=== PATIENT | female | born 1980 | race Caucasian/White ===

== ENCOUNTER 2018-03-23 20:27 | Emergency (ER) | payer OTHER ==
[~2018-03-23] VITALS: Ht 180.3 cm; Wt 61.2 kg
[2018-03-23 20:35] VITALS: BP 95/55
[2018-03-24] MEDS ORDERED: cefTRIAXone SOD 1,000 MG VL IM ONE (00:15)
[2018-03-24] MEDS: cefTRIAXone W LIDOCAINE 1 GM IM IM ONE ×2 (00:30→01:04)
[2018-03-24] MEDS ORDERED: TETANUS-DIPTH-ACEL PERTUSSIS 0.5ML SYRG IM ONE (00:30)
[2018-03-24] MEDS ORDERED: LIDOCAINE 2% (LOCAL ANESTH.) PF 5ml SDV ONE (00:32)
== END 2018-03-24 03:57 | disposition home or self-care (01) ==
LOC: ER 20:27
DX: S61.002A Unspecified open wound of left thumb without damage to nail, initial encounter (principal); W27.3XXA Contact with needle (sewing), initial encounter; Y93.89 Activity, other specified; Y99.8 Other external cause status; Y92.89 Other specified places as the place of occurrence of the external cause
CPT/HCPCS: 36415; 86703; 86803; 87340; 90471; 90715; 96372; 99284; J0696; J2001

== ENCOUNTER → 2018-05-17 | Outpatient (CLI) | payer OTHER ==
[2018-05-17 11:57] LABS: Hepatitis B Surface Antibody Positive
[2018-05-17 12:40] LABS: Hepatitis B Surface Antigen Negative (Negative)
== END | disposition home or self-care (01) ==
LOC: LAB 10:58
PROVIDERS: ATTEND Nurse Practitioner
DX: Z77.21 Contact with and (suspected) exposure to potentially hazardous body fluids (principal); W46.1XXD Contact with contaminated hypodermic needle, subsequent encounter
CPT/HCPCS: 36415; 86703; 86706; 86803; 87340